=== PATIENT | female | born 1995 | race Caucasian/White ===

== ENCOUNTER 2017-09-19 14:07 | Emergency (ER) | END 2017-09-19 15:47 | disposition home or self-care (01) ==

== ENCOUNTER 2019-01-31 18:43 | Emergency (ER) | payer MEDICAID ==
[~2019-01-31] VITALS: Ht 154.9 cm; Wt 51.0 kg
[~2019-01-31 18:43] MED LIST: BENZ-6 PO; D-ME473S2 PO; IBUP-1542 PO; PSEU30TA38 PO
[2019-01-31 18:48] VITALS: Ht 154.9 cm; Wt 51.0 kg
[2019-01-31 20:39] VITALS: BP 110/70; PULSE 88; RESP 17
== END 2019-01-31 20:39 | disposition home or self-care (01) ==
LOC: FTE 18:43
DX: O26.891 Other specified pregnancy related conditions, first trimester (principal); R10.10 Upper abdominal pain, unspecified; Z3A.00 Weeks of gestation of pregnancy not specified
CPT/HCPCS: 36415; 76801; 76817; 80048; 84702; 85025; 86900; 86901; Z7502